=== PATIENT | female | born 1970 | race Caucasian/White ===

== ENCOUNTER 2023-12-13 10:46 | Emergency (ER) | payer SELFPAY ==
[2023-12-13] VITALS (16 sets, daily range): BP systolic 145–167; BP diastolic 72–109; PULSE 92–108; RESP 16–19; TEMP 36.8–36.9; O2SAT 96–100
--- NOTE | ~2023-12-13 | CT_ITS ---
EXAMINATION: CT abdomen pelvis w con DATE: 12/13/2023 12:36 INDICATION: Right lower quadrant abdominal pain. TECHNIQUE: Computed tomography (CT) of the abdomen and pelvis was performed with 100 mL Omnipaque-350 intravenous contrast. Automated exposure control and iterative reconstruction technique were employe d. The dose-length product was 1169.68 mGy-cm. COMPARISON: None FINDINGS: Discoid atelectasis in the posterior right lung base. Heart size is normal. No pericardial or pleural effusion. Diffuse hepatic steatosis with focal sparing at the gallbladder fossa. Gallbladder, spleen , pancreas, bilateral adrenal glands and kidneys are normal. The fluid-filled appendix is dilated to 11 mm distal to a likely obstructing calcified appendicolith at the appendiceal orifice. There is pro minent inflammatory stranding surrounding the appendix and small amount of nonloculated retroperitone al fluid consistent with acute appendicitis. No abscess or free intraperineal gas. Remainder of the b owels are unremarkable. Bladder and bilateral ovaries are normal. Asymmetric enlargement of the anter ior uterine fundus suggesting an underlying uterine fibroid. No pathologically enlarged abdominal or pelvic lymphadenopathy. Mild lumbar levoscoliosis with mild spondylosis. IMPRESSION: 1. Acute appendicitis. Dr. Hernandez discussed these findings with Dr. Tripp at 12:52 PM. Reviewed, dictated and finalized at location A. [employer] IMPRESSION: 1. Acute appendicitis. Dr. Hernandez discussed these findings with Dr. Tripp at 1 2:52 PM.
--- NOTE | ~2023-12-13 | XR_ITS ---
EXAMINATION: XR chest 1V portable DATE: 12/13/2023 11:15 INDICATION: Preoperative evaluation. TECHNIQUE: AP view of the chest was obtained. COMPARISON: None FINDINGS: The lungs are clear with no focal airspace opacities, pulmonary edema, pleural effusion or pneumothor ax. The cardiomediastinal silhouette is normal. Mild thoracic dextrocurvature. IMPRESSION: 1. No acute cardiopulmonary disease. Reviewed, dictated and finalized at location A. [employer]
--- NOTE | 2023-12-13 10:59 | ECG_ITS ---
Measurements Intervals [place] Rate: 101 P: 37 W[place]: 163 QRS: 36 QRSD: 82 T: 30 QT: 302 QTc: 392 Interpretive Statements SINUS TACHYCARDIA BASELINE ARTIFACT NONSPECIFIC ST & T-WAVE ABNORMALITY ABNORMAL RHYTHM ECG NO PREVIOUS ECG AVAILABLE FOR COMPARISON Electronically Signed On 12-14-2023 18:17:23 [employer]TER by Dez Lugo M.D.
--- NOTE | 2023-12-13 11:02 | ED.GENADULT ---
HPI - General Adult General Chief complaint: Abdominal Pain Stated complaint: R abdominal pain Time Seen by Provider: 12/13/23 10:59 History of Present Illness HPI narrative: This is a 53-year-old female presenting ED with chief complaint of abdominal pain. Starting on Thursday the patient had diffuse abdominal pain that has migrated to point tenderness in the right lower quadrant. Pain is 6/10 in intensity and getting worse. Patient has had multiple episodes of nausea and vomiting. She has had chills but no fevers. Last bowel movement was yesterday and was nonbloody. Patient reports hyper-sensitivity to opiates. Related Data Home Medications Medication Instructions Recorded Confirmed No Home Medications 12/13/23 12/13/23 Allergies Allergy/AdvReac Type Severity Reaction Status Date / Time acetaminophen [From Percocet] AdvReac Other Verified 12/13/23 10:56 hydrocodone AdvReac Other Verified 12/13/23 10:56 naproxen [From Aleve] AdvReac Itching Verified 12/13/23 11:02 oxycodone [From Percocet] AdvReac Other Verified 12/13/23 10:56 Exam Narrative: insert APPEARANCE: No apparent distress. Head: atraumatic. EYES: EOMI, NOSE: Atraumatic NECK: Trachea midline RESPIRATORY: No increased rate of breathing, ctab CARDIOVASCULAR: RRR, ABDOMINAL: point tenderness in the right lower quadrant. Voluntary guarding. Rest of the abdomen is soft. MUSCULOSKELETAl: No obvious deformities NEURO: Alert. Moving 4/4 extremities SKIN:: Warm, dry. Normal color PSYCHIATRIC: Normal affect Course Vital Signs Vital signs: Vital Signs Temperature 98.3 F 12/13/23 10:49 Pulse Rate 108 H 12/13/23 10:49 Respiratory Rate 12/13/23 10:49 Blood Pressure 158/89 H 12/13/23 10:49 Pulse Oximetry 100 12/13/23 10:49 Oxygen Delivery Room Air 12/13/23 10:49 Temperature 98.3 F 12/13/23 10:49 Pulse Rate 108 H 12/13/23 10:49 Respiratory Rate 19 12/13/23 10:49 Blood Pressure 158/89 H 12/13/23 10:49 Pulse Oximetry 100 12/13/23 10:49 Oxygen Delivery Room Air 12/13/23 10:49 Medical Decision Making [facility] Narrative Medical decision making narrative: -Course: 53-year-old female presenting with right lower quadrant pain. CT shows acute appendicitis. No perforation at this time. Patient fluid resuscitated, started on IV antibiotics. Case discussed with Dr. Campbell patient be transferred [facility] for surgical evaluation. -DDX includes but is not limited to: Appendicitis, colitis, diverticulitis, gallbladder disease, SBO -Co-morbidities complicating care: opiate sensitivity. 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 Lives in [place] and commutes to [facility] to visit her . -Hx from independent Sources: [place]- at bedside -Independent interpretation of studies: White count 20. CT showed acute appendicitis. -Discussion of Management/Consultants: Leeroy-surgery -Interventions: 2 L normal saline, 150 cc maintenance normal saline, ceftriaxone, Flagyl, Dilaudid 0.5 mg -Shared decision making / Disposition: transferred Vital Signs Vital Signs: Vital Signs Temperature 98.3 F 12/13/23 10:49 Pulse Rate 108 H 12/13/23 10:49 Respiratory Rate 19 12/13/23 10:49 Blood Pressure 158/89 H 12/13/23 10:49 Pulse Oximetry 100 12/13/23 10:49 Oxygen Delivery Room Air 12/13/23 10:49 Temperature 98.3 F 12/13/23 10:49 Pulse Rate 108 H 12/13/23 10:49 Respiratory Rate 19 12/13/23 10:49 Blood Pressure 158/89 H 12/13/23 10:49 Pulse Oximetry 100 12/13/23 10:49 Oxygen Delivery Room Air 12/13/23 10:49 Critical Care Time Critical Care Time Critical Care Time: Yes Total Critical Care Time: 35 Discharge Plan Discharge Clinical Impression: Acute appendicitis Patient Disposition: Acute Care Hospital Condition: Serious Prescriptions: No Action No Home Medications Follow-up/Referrals: UNKNOWN,DOCTOR [Primary Care Provider] -
[2023-12-13] MEDS: SODIUM CHLORIDE 0.9% IV 2,000 ML 999 ML IV CONT (11:14)
[2023-12-13] MEDS: HYDROmorphone HCL INJ (*CRX) 2 MG/ML VIAL 0.5 MG IV PUSH ×2 (11:17→12:47)
[2023-12-13 11:32] LABS: Hematocrit 42.8 % (35.0-49.0); Hemoglobin 14.6 g/dL (12.0-15.0); Mean Corpuscular HGB Conc 34.1 g/dL (32.0-36.0); Mean Corpuscular Hemoglobin 29.7 pg (27.0-31.0); Mean Corpuscular Volume 87.2 fL (78.0-102.0); Mean Platelet Volume 10.4 fl (9.2-11.8); Platelet Count Result 247 K/mm3 (150-420); Red Blood Count 4.91 M/mm3 (4.20-5.40)
[2023-12-13 11:36] LABS: White Blood Count 20.9 K/mm3 (4.8-10.8)
[2023-12-13 11:48] LABS: Partial Thromboplastin Time 30.1 SEC (23.90-30.70); Prothrombin Time 10.6 Seconds (9.50-12.10)
[2023-12-13 11:51] LABS: Alanine Aminotransferase 53 U/L (14-59); Albumin Level 3.2 g/dL (3.4-5.0); Alkaline Phosphatase 101 U/L (46-116); Anion Gap 13 mmol/L (8-16); Aspartate Amino Transferase 37 U/L (15-37); Bilirubin,Total 1.3 mg/dL (0.00-1.00); Blood Urea Nitrogen 14 mg/dL (7-18); Calcium 8.5 mg/dL (8.5-10.1); Carbon Dioxide 25 mmol/L (21-32); Chloride 101 mmol/L (98-108); Estimated CRCL calculation 70 ml/min; Estimated Glomerular Filt Rate 52; Glucose 128 mg/dL (70-99); Lipase 21 U/L (16-77); Osmolality Calculated 290 mOsm/kg (285-295); Potassium 3.7 mmol/L (3.5-5.1); Sodium 139 mmol/L (136-145); Total Protein 7.8 g/dL (6.4-8.2)
[2023-12-13 11:54] LABS: Lactic Acid Reflex 1.3 mmol/L (0.4-2.0)
[2023-12-13 12:11] LABS: Band Neutrophils Percent 5 % (0-6); Lymphocytes Percent Manual 12 % (18-44); Neutrophils Absolute Manual 17.13 K/mm3 (1.7-7.2); Neutrophils Percent Manual 77 % (46-73); Total Cells Counted 100
[2023-12-13 12:12] LABS: Basophils Percent Manual 1 % (0-1); Large Platelets Present; Monocytes Absolute Manual 1.04 K/mm3 (0.1-0.90); Monocytes Percent Manual 5 % (3-9); Platelet Clumps Present; Platelet Estimate Adequate (Adequate); Schistocytes None Seen (NORMAL)
[2023-12-13 12:14] LABS: Pregnancy On Board Control Positive; Urine Pregnancy Test Negative
--- NOTE | 2023-12-13 12:20 | PC.NURSE ---
Patient taken down to CT.
[2023-12-13] MEDS: SODIUM CHLORIDE 0.9% IV 1,000 ML 150 ML IV CONT (12:47)
[2023-12-13] MEDS: metroNIDAZOLE 500 MG/ISO 100ML 500 MG/100 ML BAG 100 MG IVPB (13:37)
--- NOTE | 2023-12-13 13:40 | PC.NURSE ---
On 12/13/23, the student, Gertrude Bailey, provided care and completed [facility] documentation on this patient. I have reviewed the student's documentation and agree with the findings.
--- NOTE | 2023-12-13 13:54 | PC.NURSE ---
Report Called to Sameera JORDAN at [facility].
[2023-12-13 14:12] LABS: Appearance Urine Clear (Clear); Bilirubin Urine Negative (Negative); Blood Urine 1+ (Negative); Color Urine Light Yellow (Yellow); Glucose Urine UA Negative (Negative); Ketones Urine Negative (Negative); Leukocyte Esterase Ur Negative LEU/UL (Negative); Nitrate Urine Negative (Negative); Protein Urine Negative (Negative); Urobilinogen Urine 0.2 mg/dL (0.2-1.0)
[2023-12-13 14:23] LABS: Add Urine Microscopic? YES; Bacteria Urine Trace /hpf; RBC Urine 0-2 /hpf (0-2); Squamous Epithelial Cell Urine Few /hpf (Few)
--- NOTE | 2023-12-21 14:51 | PC.NURSE ---
THIS PATIENT TRANSFERED TO [place], THEY ARE AWARE OF CULTURE REPORT.
== END 2023-12-13 13:45 | disposition short-term general hospital (02) ==
PROVIDERS: Emergency Provider Emergency Medicine
DX: K35.80 Unspecified acute appendicitis (principal)
CPT/HCPCS: 36415; 71045; 74177; 80053; 81001; 81025; 83605; 83690; 85025; 85610; 85730; 87040; 93005; 96361; 96365; 96375; 99285; J0696; J1170; J1836; J2250; J3010; J7030; Q9967

== ENCOUNTER 2023-12-13 17:48 | Observation (INO) | payer SELFPAY ==
[2023-12-13] VITALS (14 sets, daily range): BP systolic 114–148; BP diastolic 49–72; PULSE 90–112; RESP 12–22; TEMP 36.4–37.7; O2SAT 92–98
--- NOTE | 2023-12-13 14:31 | ADMGEN ---
This patient, Hakeem Salgado, was admitted to [facility] Surg Room 327-01. Patient/family oriented to hospital policies and general routines including ID bracelet, bed and alarms, visiting hours, pain management, procedures, bathroom and other care routines, personal items, smoking policy, room service/diet, and visiting hours. Information on how to activate the Rapid Response Team has been discussed. Patient/Family are encouraged to report perceived risks to care and to ask questions if they do not understand what they are told or what they should do.
--- NOTE | 2023-12-13 15:11 | PM.IMHP ---
H&P: HPI History of Present Illness Date/Time: 12/13/23 15:11 Chief Complaint: Acute appendicitis Narrative: The patient is a 53-year-old female presenting to the emergency department complaining of right lower quadrant abdominal pain. The patient reports the pain started on Thursday and was more diffuse in nature. She reports over the last few days the pain has now localized to the right lower quadrant and is constant and sharp. The patient reports the pain is worse with movement. The patient reports associated anorexia, nausea and vomiting, chills. The patient denies previous episodes. Workup in the emergency department, including imaging, significant for acute appendicitis. Review of Systems Review of Systems: All systems reviewed & are unremarkable except as noted in HPI and below PMFSH Social History Social History Smoking status: Current every day smoker Tobacco type: cigarettes Alcohol intake: never Substance use: never Do You Feel Safe in your Home?: Yes Lack of Transportation: No Lack of Food: Never True Current Housing: I Have Housing Concerned About Future Housing: No Difficulty Paying Gas/Electric Bills: No Difficulty Paying for Meds: No Currently Unemployed: No Education: Don't Know Difficulty w/ Childcare or Family Care: No Spiritual care concerns: No Comments PMH - none PSH - none FH - no IBS, CRC Meds Home Medications and Allergies Home Medications Medication Instructions Recorded Confirmed Type No Home Medications 12/13/23 12/13/23 History Allergies Allergy/AdvReac Type Severity Reaction Status Date / Time acetaminophen [From Percocet] AdvReac Other Verified 12/13/23 10:56 hydrocodone AdvReac Other Verified 12/13/23 10:56 naproxen [From Aleve] AdvReac Itching Verified 12/13/23 11:02 oxycodone [From Percocet] AdvReac Other Verified 12/13/23 10:56 Exam Const: General: cooperative, comfortable and no acute distress HENMT: Head: normal to inspection, normocephalic and atraumatic Eyes: General: appearance normal, both eyes and all related structures Neck: Neck: normal visual inspection, full ROM and no lymphadenopathy Resp: Auscultation: clear to auscultation bilaterally Cardio: Rate: regular rate Rhythm: regular rhythm GI: Inspection: normal to inspection and distended GI Palp: Yes abdominal tenderness, Yes Soft to palpation, Yes Tenderness to palpation present (GI), Yes Guarding due to palpation present (GI) and No Rigid due to palpation Skin: General skin exam: normal color and no rashes or lesions noted Neuro: General: patient oriented x3 and CN's II-XI intact bilaterally Extrem: General: normal to inspection and full ROM Psych: Appearance: grossly normal H&P: Results Imaging CT scan - abdomen: My impression: Acute appendicitis Assessment and Plan Assessment and plan (1) Acute appendicitis: Code(s): K35.80 - Unspecified acute appendicitis Status: Acute Assessment and Plan: NPO, IV antibiotics, urgent appendectomy
--- NOTE | 2023-12-13 15:19 | P.PNAN_ITS ---
Anes - Initial Pre Proc Eval Procedure: Operation Date: 12/13/23 15:00 Proposed Procedures p Laparoscopic Appendectomy - Kallie Umaña MD Date/Time: 12/13/23 15:19 Surgeon: Kallie Umaña MD Pre Op Diagnosis: Appendicitis Patient Data Age: 53 Gender: F Height: Weight: Allergies Allergy/AdvReac Type Severity Reaction Status Date / Time acetaminophen [From Percocet] AdvReac Other Verified 12/13/23 10:56 hydrocodone AdvReac Other Verified 12/13/23 10:56 naproxen [From Aleve] AdvReac Itching Verified 12/13/23 11:02 oxycodone [From Percocet] AdvReac Other Verified 12/13/23 10:56 Home Medications Medication Instructions Recorded Confirmed Type No Home Medications 12/13/23 12/13/23 History Patient hx anesthesia problems: none Family hx anesthesia problems: none Results Review: All pre-operative results and documents have been reviewed as part of the pre- operative evaluation. [facility] Social History Social History Smoking status: Current every day smoker Tobacco type: cigarettes Alcohol intake: never Substance use: never Do You Feel Safe in your Home?: Yes Lack of Transportation: No Lack of Food: Never True Current Housing: I Have Housing Concerned About Future Housing: No Difficulty Paying Gas/Electric Bills: No Difficulty Paying for Meds: No Currently Unemployed: No Education: Don't Know Difficulty w/ Childcare or Family Care: No Spiritual care concerns: No Anes - Eval Final PreProcedure Day of Procedure 12/13/23 15:19 Patient weight: obese Heart: regular rate and rhythm Lungs: clear to auscultation Airway: Mallampati scale class II Neurological: alert and oriented Last oral intake: >/= 8 hours ASA classification: II Emergent: yes Anesthetic plan: proceed Anesthesia type and monitoring: general ETT and standard monitoring Results Review: All pre-operative results and documents have been reviewed as part of the pre- operative evaluation. Informed Consent: The patient's anesthetic plan and its attendant risks and benefits were discussed with the patient/family/POA. Questions were solicited and answers provided to the satisfaction of the patient/family/POA.
--- NOTE | 2023-12-13 15:20 | WPDHPUPDATE1 ---
History and Physical Update Update Date/Time: 12/13/23 15:20 History and Physical has been reviewed, including an updated exam of the patient. There are NO changes in the patient's condition. Risks, benefits, and alternatives have been discussed and questions answered. Patient agrees to proceed with procedure.
[2023-12-13] MEDS: BUPIVACAINE/EPINEPHRINE 0.5% 30 ML VIAL INFILTRATE (15:58)
--- NOTE | 2023-12-13 15:59 | W.PM.PROC2 ---
Procedure Note - Detailed Date of Procedure 12/13/23 Pre-op Diagnosis Acute appendicitis Post-op Diagnosis Other (Acute perforated appendicitis with small intra-abdominal abscess) Procedure Performed laparoscopic appendectomy Surgeon Kallie Umaña MD Anesthesia General Indications 53-year-old female presenting to the emergency department with acute appendicitis Findings acute appendicitis with perforation and small intra-abdominal abscess Description of Procedure The patient was taken to the operating room and placed in the supine position. After adequate induction of general anesthesia, the patient was prepped and draped in the normal sterile fashion. A time-out was then done to verify the patient's identity, as well as the procedure being performed. I began by making a 5 mm incision in the infraumbilical region, through this a Veress needle was placed in the peritoneal cavity. CO2 gas was then insufflated and after adequate pneumoperitoneum was achieved the Veress needle was removed. Then placed a 5 mm Optiview trocar under direct visualization into the peritoneal cavity. I then insufflated through this trocar site and the endoscope was placed into the trocar. Under direct visualization, placed 2 further 5 mm suprapubic port as well as an additional 12 mm port in the left lower abdomen. At this point identified the cecum, I retracted the cecum both medially and superiorly allowing me to expose the appendix. The appendix was noted to be very dilated, inflamed with evidence of gangrenous changes especially towards the body and tip. The appendix was noted to be very adherent to the right lateral sidewall as well as the ileum. I was able to bluntly dissect the appendix from these adhesions. Once dissected freely, there was noted to be a small perforation with a small intra-abdominal abscess. I was able to copiously wash out this area and no other abscess cavities was seen. I then was able to locate the base of the appendix with the cecum. I created a window with the [place] dissector between the appendix itself and the mesoappendix. I then transected the mesoappendix with a white vascular staple load x2. The Endo-CIARAN was then reloaded with a blue staple load and I transected the base of the appendix. Once the specimen was completely detached, an endo-pouch was placed into the 12 mm port site and the specimen was removed through the endo-pouch. The appendiceal specimen will be sent to pathology for further review. I then copiously irrigated the right lower quadrant. Hemostasis was noted at both staple lines no other pathology was seen in this area. I then moved the camera to the suprapubic port to check our its port of entry. No iatrogenic injury or other pathology was noted in the upper abdomen. I then closed the 12 mm port site with a James code and 0 Vicryl suture under direct visualization. At this point, the abdomen was desufflated and all ports were removed. All port sites were closed with 4 Monocryl subcuticular suture. Dermabond was placed on all wounds. The patient tolerated the procedure well and was extubated in the operating room postop. She will be sent to the recovery room in stable condition. Estimated Blood Loss 10 Drains No Packing No Pathology Yes Complications No immediate complications Condition Stable Disposition PACU [facility] Billing Surgery - Charge Forward: Surgery Billing
[2023-12-13] MEDS: LACTATED RINGERS 1,000 ML 30 ML IV CONT ×2 (16:01→16:20)
[2023-12-13] MEDS: fentaNYL CITRATE INJ (*CRX) 100 MCG/2 ML VIAL 25 MCG IV PUSH ×2 (16:31→16:40)
--- NOTE | 2023-12-13 16:35 | SUR.PHASEI ---
1633: Simple mask removed.
[2023-12-13] MEDS: metroNIDAZOLE 250 MG TABLET PO (21:04)
[2023-12-13] MEDS: CIPROFLOXACIN 500 MG TAB PO (21:05)
[2023-12-13] MEDS: traMADol HCL (*CRX) 50 MG TABLET PO (21:06)
[2023-12-14 03:11] VITALS: BP 112/71; PULSE 84; RESP 20; TEMP 36.3; O2SAT 97
[2023-12-14 06:46] LABS: Estimated Glomerular Filt Rate > 60
--- NOTE | 2023-12-14 08:12 | WPDANESPN ---
Anes - Prog Note Post-Op Date/Time: 12/14/23 08:12 Cardiovascular status: normal Respiratory status: normal Airway patency: baseline Mental status: baseline Post-Op hydration status: normal Vital Signs: Last Vital Signs Temp 36.3 C L 12/14/23 03:11 Pulse 84 12/14/23 03:11 Resp 20 12/14/23 03:11 BP 112/71 12/14/23 03:11 Pulse Ox 97 12/14/23 03:11 O2 Del Method Room Air 12/13/23 20:00 O2 Flow Rate 2 12/13/23 17:45 Pain Score (VAS): 0 I/O: Intake & Output 12/13/23 12/14/23 12/14/23 23:59 07:59 15:59 Intake Total 618 500 Balance 618 500 Laboratory Tests 12/14/23 06:10 12/14/23 06:10 Creatinine 0.80 Estim Creat Clear Calc Not Reportable Estimated GFR > 60 Post-procedural complaints: none Patient Feedback: Patient satisfied with anesthetic care.
[2023-12-14] MEDS: traMADol HCL (*CRX) 50 MG TABLET PO (09:01)
[2023-12-14] MEDS: metroNIDAZOLE 250 MG TABLET PO (09:01)
[2023-12-14] MEDS: CIPROFLOXACIN 500 MG TAB PO (09:01)
[2023-12-14 09:05] LABS: Basophils Percent Auto 0.2 % (0.2-1.2); Hematocrit 37.8 % (37.0-47.0); Hemoglobin 12.3 g/dL (12.0-15.0); Immature Granulocyte Absolute 0.18 K/mm3 (0.00-0.031); Immature Granulocyte Percent A 0.9 % (0-0.5); Lymphocytes Absolute Auto 1.42 K/mm3 (0.9-3.2); Lymphocytes Percent Auto 7.2 % (18.3-44.2); Mean Corpuscular HGB Conc 32.5 g/dl (32-36); Mean Corpuscular Hemoglobin 29.8 pg (26-34); Mean Corpuscular Volume 91.5 fl (80-100); Mean Platelet Volume 11.3 fl (7.4-10.4); Monocytes Absolute Auto 1.7 K/mm3 (0.1-0.6); Monocytes Percent Auto 8.8 % (2.6-8.5); Neutrophils Absolute Auto 16.4 K/mm3 (1.3-6.7); Neutrophils Percent Auto 82.9 % (45.5-73.1); Platelet Count Result 219 k/mm3 (150-375); Red Blood Count 4.13 M/mm3 (4.2-5.4); Red Cell Distribution Width 12.2 % (11.5-14.5); White Blood Count 19.8 K/mm3 (4.5-10.0)
[2023-12-14 09:07] LABS: Anion Gap 4 mmol/L (8-16); Blood Urea Nitrogen 9 mg/dL (7-17); Calcium 8.7 mg/dL (8.4-10.2); Carbon Dioxide 26 mmol/L (22-30); Chloride 108 mmol/L (98-107); Estimated Glomerular Filt Rate > 60; Glucose 114 mg/dL (65-110); Potassium 4.3 mmol/L (3.4-5.0); Sodium 138 mmol/L (137-145)
--- NOTE | 2023-12-14 11:38 | PM.DS ---
DS: Admitting Diagnosis Discharge Date 12/14/2023 Admitting Diagnosis Acute appendicitis DS: Discharge Diagnosis Discharge Diagnosis (1) Acute appendicitis with generalized peritonitis, with perforation and abscess: Code(s): K35.211 - Acute appendicitis with generalized peritonitis, with perforation and abscess Status: Acute DS: Summary Hospital Course Reason for hospitalization: The patient is a 53-year-old female who presented to the emergency department complaining of right lower quadrant abdominal pain. Workup in the emergency department, including imaging, was significant for acute appendicitis. Hospital Course: The patient was admitted for surgical evaluation and started on broad-spectrum IV antibiotics. She was taken to the OR on 12/13/2023 for a laparoscopic appendectomy by Dr. Campbell. She had findings of acute perforated appendicitis with a small intra-abdominal abscess. Her diet was slowly advanced postoperatively. She was tolerating a diet and tolerating activity postop day 1. Labs showed a white blood cell count was down to 19,000. She was afebrile. Discussed her case with Dr. Umaña, who felt she was stable for discharge on postop day 1. She will be discharged with oral antibiotics. Status at Discharge Functional status at discharge: independent ambulation Overall status at discharge: patient is progressing back to baseline Time Spent with Patient Time attestation: Total time spent providing and/or coordinating discharge services: Time spent: Greater than 30 minutes Exam Const: General: comfortable and no acute distress Resp: Effort & Inspection: normal respiratory effort Auscultation: clear to auscultation bilaterally Cardio: Rate: regular rate Rhythm: regular rhythm GI: Inspection: non-distended and incision (incisions dry and intact) GI Palp: Yes Soft to palpation, Yes Tenderness to palpation present (GI) (incisional) and No Guarding due to palpation present (GI) Auscultation: normal bowel sounds Neuro: General: moves all extremities and no focal motor deficits Extrem: General: no calf tenderness and no edema Psych: Mental Status: mental status grossly normal Insight: Good insight present (Psych) DS: Data Data Completed and Pending Pending studies at discharge: Pending at discharge 12/13/23 15:43 Surgical [PTH] Routine Labs on day of discharge: Labs from last 24 hours 12/14/23 12/14/23 06:10 06:06 WBC 19.8 H RBC 4.13 L Hgb 12.3 Hct 37.8 MCV 91.5 MCH 29.8 MCHC 32.5 RDW 12.2 Plt Count 219 MPV 11.3 H Immature Gran % (Auto) 0.9 H Neut % (Auto) 82.9 H Lymph % (Auto) 7.2 L [place] % (Auto) 8.8 H Eos % (Auto) 0.0 Baso % (Auto) 0.2 Lymph # (Auto) 1.42 [place] # (Auto) 1.7 H Eos # (Auto) 0.0 Baso # (Auto) 0.0 Abs Immat Gran (auto) 0.18 H Absolute Neuts (auto) 16.4 H Absolute Nucleated RBC 0.0 Nucleated RBC % 0.0 Sodium 138 Potassium 4.3 Chloride 108 H Carbon Dioxide 26 Anion Gap 4 L BUN 9 Creatinine 0.80 0.80 Estim Creat Clear Calc Not Reportable Not Reportable Estimated GFR > 60 > 60 Glucose 114 H Calcium 8.7 Procedures/Treatments: Procedures Operation Date: 12/13/23 15:00 Actual Procedure Side Surgeon p Laparoscopic Appendectomy Not Applicable Kallie Umaña MD Imaging Radiologist's impression: EXAMINATION: CT abdomen pelvis w con DATE: 12/13/2023 12:36 INDICATION: Right lower quadrant abdominal pain. TECHNIQUE: Computed tomography (CT) of the abdomen and pelvis was performed with 100 mL Omnipaque-350 intravenous contrast. Automated exposure control and iterative reconstruction technique were employed. The dose-length product was 1169.68 mGy-cm. COMPARISON: None FINDINGS: Discoid atelectasis in the posterior right lung base. Heart size is normal. No pericardial or pleural effusion. Diffuse hepatic steatosis with focal sparing at the gallbladder fossa. Gallbladder, spl
== END 2023-12-14 12:25 | disposition home or self-care (01) ==
PROVIDERS: Nurse Practitioner Family; Admitting Provider Surgery; Visit Provider Surgery
PROC: 0DTJ4ZZ Resection of Appendix, Percutaneous Endoscopic Approach (ICD-10-PCS; CPT 44970; principal; 2023-12-13 15:00)
DX: K35.33 Acute appendicitis with perforation, localized peritonitis, and gangrene, with abscess (principal); F17.210 Nicotine dependence, cigarettes, uncomplicated; E66.9 Obesity, unspecified
CPT/HCPCS: 44970; 36415; 80048; 82565; 85025; 88304; A9270; G0378; J0330; J0696; J1100; J2405; J2704; J3010; J7030; J7120